=== PATIENT | male | born 1985 | race Two or more races ===

== ENCOUNTER 2023-10-07 22:26 | Inpatient (IN) | payer MEDICAID, OTHER ==
[~2023-10-07] VITALS: Ht 185.4 cm; Wt 70.0 kg
[2023-10-07] MEDS ORDERED: LACTATED RINGER'S 1,000 ML IV ONE (23:00)
[2023-10-07] MEDS ORDERED: LORazepam 2MG/ML-1ML VIAL IV ONE (23:00)
[2023-10-07 23:03] LABS: Basophils # (auto) 0.1 10 ^3/uL (0-0.2); Basophils % (auto) 0.9 % (0.0-2.0); Eosinophils # (auto) 0 10 ^3/uL (0-0.8); Hematocrit 28.5 % (41.0-53.0); Hemoglobin 9.2 g/dL (13.5-17.5); Lymphocytes # (auto) 1.1 10 ^3/uL (0.4-5.4); Lymphocytes % (auto) 10.1 % (10.0-50.0); Mean Corpuscular Hemoglobin 34.5 pg (28.0-32.0); Mean Corpuscular Hgb Conc. 32.4 g/dL (32.0-36.0); Mean Corpuscular Volume 106.6 fL (80.0-100.0); Nucleated Red Blood Cells % 0.1 %; Red Blood Cells 2.68 10^6/uL (4.5-5.90); Red Cell Distribution Width 14.3 % (11.8-14.3); White Blood Cell 11.3 10^3/uL (4.4-10.8)
[2023-10-07 23:20] LABS: INR 2.2 (0.9-1.15); Prothrombin Time 21.9 sec (9.3-11.8)
[2023-10-07 23:31] LABS: Alanine Aminotransferase 53 U/L (7-40); Alkaline Phosphatase 242 U/L (46-116); Anion Gap 18 (5-15); Aspartate Aminotransferase 264 U/L (13-40); Bilirubin, Total 12.2 mg/dL (0.2-1.0); Blood Urea Nitrogen 9 mg/dL (9-23); Calcium 8.6 mg/dL (8.5-10.1); Carbon Dioxide 17 mmol/L (20-30); Chloride 98 mmol/L (98-107); Glucose 103 mg/dL (74-106); Potassium 3.6 mmol/L (3.5-5.1); Sodium 133 mmol/L (136-145); Total Protein 8.3 g/dL (5.7-8.2)
[2023-10-07 23:56] LABS: BUN/Creatinine Ratio 8.6 (10.0-20.0)
[2023-10-08 00:19] LABS: Platelet Estimate Decreased
[2023-10-08 00:20] LABS: Large Platelets FEW; Macrocytosis Moderate; Target Cell FEW
[2023-10-08 00:25] VITALS: PULSE 118; RESP 20; O2SAT 98
[2023-10-08] MEDS ORDERED: FOLIC ACID 1 MG in D5W 5% 50 ML INJ ONE (01:30)
[2023-10-08] MEDS ORDERED: LORazepam 2MG/ML-1ML VIAL IV ONE (01:30)
[2023-10-08] MEDS ORDERED: THIAMINE 100mg/ml INJ (200mg/2ml VIAL) IV ONE (01:30)
[2023-10-08 01:57] LABS: INR 2.28 (0.9-1.15); Prothrombin Time 22.7 sec (9.3-11.8)
[2023-10-08 02:29] LABS: Salicylate < 3.0 mg/dL (2.8-20.0)
[2023-10-08 02:37] LABS: Lactic Acid w/Reflex 3.8 mmol/L (0.4-2.0)
[2023-10-08 02:51] LABS: Lipase 52 U/L (12-53)
[2023-10-08 05:04] LABS: Urine Bacteria NONE SEEN /hpf (None Seen); Urine Blood Negative /uL (Negative); Urine Clarity Clear (Clear); Urine Color Yellow (Yellow); Urine Protein, UAD Negative (Negative); Urine Specific Gravity 1.008 (1.001-1.035); Urine WBC 3 /hpf (0 - 3)
[2023-10-08 06:46] LABS: Amphetamine Screen, Urine Neg (NEGATIVE); Barbiturate Scree,Urine Neg (NEGATIVE); Benzodiazephine Screen, Urine Neg (NEGATIVE); Cocaine Screen, Urine Neg (NEGATIVE); Opiate Scree,Urine Neg (NEGATIVE)
[2023-10-08 06:47] LABS: Cannabinoid Screen, Urine Neg (NEGATIVE); Phencyclidine Screen, Urine Neg (NEGATIVE)
[2023-10-08] MEDS ORDERED: chlordiazePOXIDE HCL 25 MG CAP PO ONE (08:45)
[2023-10-08] MEDS ORDERED: PANTOPRAZOLE 40 MG/10 ML VIAL INJ IV ONE (08:45)
[2023-10-08] MEDS ORDERED: MORPHINE SULFATE INJ 2 MG/ml SYRG IV PRN (08:45)
[2023-10-08] MEDS ORDERED: NITROGLYCERIN 0.4 MG SL TAB SL PRN (08:45)
[2023-10-08] MEDS ORDERED: SODIUM CHLORIDE 0.9% 2,000 ML IV ONE (08:45)
[2023-10-08] MEDS ORDERED: SODIUM CHLORIDE 0.9% 1,000 ML IV ONE (08:45)
[2023-10-08] MEDS ORDERED: ONDANSETRON HCL 4 MG/2 ML VIAL IV ONE (08:45)
[2023-10-08] MEDS: LORazepam 2MG/ML-1ML VIAL IV PRN ×4 (09:44→23:53)
[2023-10-08] MEDS: PANTOPRAZOLE 40 MG/10 ML VIAL INJ IV SCH (10:00)
[2023-10-08] MEDS ORDERED: ENOXAPARIN SOD 40 MG/0.4 ML SYRINGE SC SCH (10:00)
[2023-10-08] MEDS: FOLIC ACID 1 MG, MULTIPLE VITAMIN 10 ML, MAGNESIUM SULF SDV 50% 8 MEQ, THIAMINE INJ 100... INJ SCH ×5 (12:00)
[2023-10-08] MEDS ORDERED: FOLIC ACID 1 MG, MULTIPLE VITAMIN 10 ML, MAGNESIUM SULF SDV 50% 8 MEQ, THIAMINE INJ 100... INJ SCH ×5 (12:00)
[2023-10-08 20:10] VITALS: PULSE 97; RESP 19; O2SAT 100
[2023-10-09] MEDS: LORazepam 2MG/ML-1ML VIAL IV PRN ×6 (03:48→22:05)
[2023-10-09 06:55] LABS: Alanine Aminotransferase 40 U/L (7-40); Albumin 2.2 g/dL (3.2-4.8); Alkaline Phosphatase 133 U/L (46-116); Anion Gap 7 (5-15); Aspartate Aminotransferase 213 U/L (13-40); BUN/Creatinine Ratio 7.8 (10.0-20.0); Blood Urea Nitrogen 6 mg/dL (9-23); Calcium 7.2 mg/dL (8.7-10.4); Carbon Dioxide 23 mmol/L (20-30); Chloride 105 mmol/L (98-107); Glucose 94 mg/dL (74-106); Potassium 2.6 mmol/L (3.5-5.1); Sodium 135 mmol/L (136-145)
[2023-10-09 06:56] LABS: Bilirubin, Total 7.9 mg/dL (0.2-1.0); Total Protein 6.5 g/dL (5.7-8.2)
[2023-10-09 07:00] LABS: Basophils # (auto) 0.1 10 ^3/uL (0-0.2); Eosinophils # (auto) 0 10 ^3/uL (0-0.8); Monocytes # (auto) 0.5 10 ^3/uL (0-1.3); Nucleated Red Blood Cells % 0.2 %; Red Blood Cells 2.22 10^6/uL (4.5-5.90)
[2023-10-09 07:42] LABS: Eosinophils % (auto) 0.6 % (0.0-7.0); Hematocrit 23.5 % (41.0-53.0); Hemoglobin 8.2 g/dL (13.5-17.5); Lymphocytes % (auto) 33.2 % (10.0-50.0); Mean Corpuscular Hemoglobin 36.8 pg (28.0-32.0); Mean Corpuscular Hgb Conc. 34.8 g/dL (32.0-36.0); Mean Corpuscular Volume 105.9 fL (80.0-100.0); Monocytes % (auto) 8.6 % (0.0-12.0); Neutrophils # (auto) 3.3 10 ^3/uL (1.6-8.6); Neutrophils % (auto) 56.6 % (37.0-80.0); Red Cell Distribution Width 14.5 % (11.8-14.3); White Blood Cell 5.9 10^3/uL (4.4-10.8)
[2023-10-09 08:00] VITALS: PULSE 97; RESP 19; O2SAT 100
[2023-10-09] MEDS: methylPREDNISolone SOD SUCC 40 MG/ML VL IV SCH (11:44)
[2023-10-09] MEDS: PANTOPRAZOLE 40 MG/10 ML VIAL INJ IV SCH (11:45)
[2023-10-09] MEDS ORDERED: chlordiazePOXIDE HCL 25 MG CAP PO PRN (13:00)
[2023-10-09] MEDS ORDERED: POTASSIUM EFFERVESENT TAB 25 MEQ PO ONE (13:00)
[2023-10-09] MEDS: FOLIC ACID 1 MG, MULTIPLE VITAMIN 10 ML, MAGNESIUM SULF SDV 50% 8 MEQ, THIAMINE INJ 100... INJ SCH ×5 (13:58)
[2023-10-09] MEDS: SOD CHL 0.9%/ KCL 40MEQ 1,000 ML IV SCH ×2 (14:11→22:59)
[2023-10-09] MEDS: chlordiazePOXIDE HCL 25 MG CAP PO SCH (18:58)
[2023-10-09 20:00] VITALS: PULSE 98
[2023-10-09 21:22] VITALS: BP_SYST 105; PULSE 110; RESP 20; TEMP 98; O2SAT 98
[2023-10-10] VITALS (7 sets, daily range): BP systolic 99–115; BP diastolic 54–77; PULSE 91–107; RESP 16–19; TEMP 98.2–99; O2SAT 96–98
[2023-10-10] MEDS: chlordiazePOXIDE HCL 25 MG CAP PO SCH ×4 (00:19→17:38)
[2023-10-10 07:14] LABS: Calcium 7.4 mg/dL (8.7-10.4); Chloride 109 mmol/L (98-107); Potassium 3.7 mmol/L (3.5-5.1); Sodium 139 mmol/L (136-145)
[2023-10-10 07:15] LABS: Anion Gap 6 (5-15); Carbon Dioxide 24 mmol/L (20-30)
[2023-10-10 07:20] LABS: BUN/Creatinine Ratio 7.8 (10.0-20.0); Blood Urea Nitrogen 6 mg/dL (9-23); Glucose 98 mg/dL (74-106)
[2023-10-10 07:21] LABS: Magnesium 1.8 mg/dL (1.6-2.6)
[2023-10-10 08:47] LABS: Hepatitis B Surface Antibody Negative (Negative)
[2023-10-10] MEDS: SOD CHL 0.9%/ KCL 40MEQ 1,000 ML IV SCH (09:00)
[2023-10-10 09:05] LABS: Hepatitis B Surface Antigen Negative (Negative)
[2023-10-10 09:21] LABS: Hepatitis C Antibody Negative (Negative)
[2023-10-10 09:26] LABS: Hepatitis A Ab IgM Negative; Hepatitis B Core IgM Negative
[2023-10-10 09:27] LABS: Hepatitis C Antibody Negative (Negative)
[2023-10-10] MEDS: methylPREDNISolone SOD SUCC 40 MG/ML VL IV SCH (10:24)
[2023-10-10] MEDS: PANTOPRAZOLE 40 MG/10 ML VIAL INJ IV SCH (10:24)
[2023-10-10] MEDS: FOLIC ACID 1 MG, MULTIPLE VITAMIN 10 ML, MAGNESIUM SULF SDV 50% 8 MEQ, THIAMINE INJ 100... INJ SCH ×5 (13:08)
[2023-10-11] VITALS (7 sets, daily range): BP systolic 99–111; BP diastolic 55–69; PULSE 73–110; RESP 17–19; TEMP 97.8–99.3; O2SAT 95–98
[2023-10-11] MEDS: chlordiazePOXIDE HCL 25 MG CAP PO SCH ×4 (00:18→17:42)
[2023-10-11] MEDS: methylPREDNISolone SOD SUCC 40 MG/ML VL IV SCH (09:39)
[2023-10-11] MEDS: THIAMINE HCL 100 MG TAB PO SCH (09:39)
[2023-10-11] MEDS: PANTOPRAZOLE 40 MG/10 ML VIAL INJ IV SCH (09:39)
[2023-10-11] MEDS: FOLIC ACID 1 MG TAB PO SCH (09:39)
[2023-10-11] MEDS: MULTIPLE VITAMIN TAB PO SCH (09:39)
[2023-10-12] VITALS (7 sets, daily range): BP systolic 102–118; BP diastolic 52–69; PULSE 78–105; RESP 17–98; TEMP 97.8–98.3; O2SAT 98–100
[2023-10-12] MEDS: chlordiazePOXIDE HCL 25 MG CAP PO SCH (00:06)
[2023-10-12] MEDS: chlordiazePOXIDE HCL 5 MG CAP PO SCH ×3 (07:08→18:11)
[2023-10-12 07:52] LABS: Alanine Aminotransferase 42 U/L (7-40); Albumin 2.4 g/dL (3.2-4.8); Alkaline Phosphatase 103 U/L (46-116); Anion Gap 8 (5-15); Aspartate Aminotransferase 119 U/L (13-40); BUN/Creatinine Ratio 11.8 (10.0-20.0); Blood Urea Nitrogen 8 mg/dL (9-23); Calcium 8.2 mg/dL (8.5-10.1); Carbon Dioxide 23 mmol/L (20-30); Chloride 104 mmol/L (98-107); Glucose 90 mg/dL (74-106); Potassium 3.6 mmol/L (3.5-5.1); Sodium 135 mmol/L (136-145); Total Protein 6.8 g/dL (5.7-8.2)
[2023-10-12] MEDS: MULTIPLE VITAMIN TAB PO SCH (09:29)
[2023-10-12] MEDS: FOLIC ACID 1 MG TAB PO SCH (09:29)
[2023-10-12] MEDS: THIAMINE HCL 100 MG TAB PO SCH (09:29)
[2023-10-12] MEDS: PANTOPRAZOLE 40 MG/10 ML VIAL INJ IV SCH (09:30)
[2023-10-12] MEDS: methylPREDNISolone SOD SUCC 40 MG/ML VL IV SCH (09:30)
[2023-10-13] VITALS (7 sets, daily range): BP systolic 104–114; BP diastolic 56–67; PULSE 81–98; RESP 15–18; TEMP 97.4–99.4; O2SAT 97–100
[2023-10-13] MEDS: chlordiazePOXIDE HCL 5 MG CAP PO SCH ×4 (00:32→18:52)
[2023-10-13] MEDS: FOLIC ACID 1 MG TAB PO SCH (10:16)
[2023-10-13] MEDS: methylPREDNISolone SOD SUCC 40 MG/ML VL IV SCH (10:16)
[2023-10-13] MEDS: MULTIPLE VITAMIN TAB PO SCH (10:16)
[2023-10-13] MEDS: PANTOPRAZOLE 40 MG/10 ML VIAL INJ IV SCH (10:16)
[2023-10-13] MEDS: THIAMINE HCL 100 MG TAB PO SCH (10:16)
[2023-10-13 17:42] LABS: Chloride 103 mmol/L (98-107); Potassium 3.9 mmol/L (3.5-5.1); Sodium 135 mmol/L (136-145)
[2023-10-13 17:43] LABS: Anion Gap 7 (5-15); Carbon Dioxide 25 mmol/L (20-30)
[2023-10-13 17:44] LABS: Calcium 8.3 mg/dL (8.5-10.1)
[2023-10-13 17:49] LABS: BUN/Creatinine Ratio 15.4 (10.0-20.0); Blood Urea Nitrogen 10 mg/dL (9-23); Glucose 130 mg/dL (74-106)
[2023-10-13] MEDS ORDERED: phytonadione 10 MG in SODIUM CHL 0.9% 50 ML IV ONE (21:00)
[2023-10-13] MEDS ORDERED: phytonadione 1 ML ONE (21:47)
[2023-10-14] MEDS: chlordiazePOXIDE HCL 5 MG CAP PO SCH ×2 (00:07→06:08)
[2023-10-14 05:00] VITALS: BP 112/58; PULSE 74; RESP 17; TEMP 97.9; O2SAT 100
[2023-10-14 06:26] LABS: Basophils # (auto) 0 10 ^3/uL (0-0.2); Eosinophils # (auto) 0 10 ^3/uL (0-0.8); Hemoglobin 10.8 g/dL (13.5-17.5); Mean Corpuscular Hemoglobin 36.1 pg (28.0-32.0); Monocytes # (auto) 0.7 10 ^3/uL (0-1.3)
[2023-10-14 06:29] LABS: Basophils % (auto) 0.5 % (0.0-2.0); Eosinophils % (auto) 0.5 % (0.0-7.0); Hematocrit 32.9 % (41.0-53.0); Lymphocytes # (auto) 1.7 10 ^3/uL (0.4-5.4); Lymphocytes % (auto) 18.9 % (10.0-50.0); Mean Corpuscular Hgb Conc. 32.7 g/dL (32.0-36.0); Mean Corpuscular Volume 110.3 fL (80.0-100.0); Monocytes % (auto) 7.7 % (0.0-12.0); Neutrophils # (auto) 6.4 10 ^3/uL (1.6-8.6); Neutrophils % (auto) 72.4 % (37.0-80.0); Red Blood Cells 2.99 10^6/uL (4.5-5.90); Red Cell Distribution Width 15.3 % (11.8-14.3); White Blood Cell 8.8 10^3/uL (4.4-10.8)
[2023-10-14 08:00] VITALS: BP 112/62; PULSE 79; RESP 17; TEMP 98.5; O2SAT 98
[2023-10-14 09:00] VITALS: BP 112/62; PULSE 79; RESP 17; TEMP 98.5; O2SAT 100
[2023-10-14] MEDS: FOLIC ACID 1 MG TAB PO SCH (11:39)
[2023-10-14] MEDS: MULTIPLE VITAMIN TAB PO SCH (11:39)
[2023-10-14] MEDS: THIAMINE HCL 100 MG TAB PO SCH (11:39)
[2023-10-14] MEDS: PANTOPRAZOLE 40 MG/10 ML VIAL INJ IV SCH (11:39)
[2023-10-14] MEDS: predniSONE 20 MG TAB PO SCH (11:39)
[2023-10-14] MEDS ORDERED: chlordiazePOXIDE HCL 5 MG CAP PO PRN (12:45)
[2023-10-14 17:00] VITALS: BP 103/38; PULSE 87; RESP 18; O2SAT 98
[2023-10-14 20:00] VITALS: RESP 18; O2SAT 98
[2023-10-15 00:10] VITALS: BP 103/52; PULSE 78; RESP 17; TEMP 97.5; O2SAT 99
[2023-10-15 05:02] VITALS: BP 97/59; PULSE 71; RESP 18; TEMP 98.6; O2SAT 100
[2023-10-15] MEDS: FOLIC ACID 1 MG TAB PO SCH (07:55)
[2023-10-15] MEDS: THIAMINE HCL 100 MG TAB PO SCH (07:55)
[2023-10-15] MEDS: predniSONE 20 MG TAB PO SCH (07:55)
[2023-10-15] MEDS: MULTIPLE VITAMIN TAB PO SCH (07:55)
[2023-10-15 08:00] VITALS: BP 130/85; PULSE 62; RESP 18; TEMP 97.6; O2SAT 95
[2023-10-15 09:00] VITALS: BP 120/79; PULSE 61; RESP 16; TEMP 97.5; O2SAT 94
[2023-10-15 10:47] VITALS: BP 130/85; PULSE 62; RESP 18; TEMP 97.6; O2SAT 95
[2023-10-15 13:00] VITALS: BP 119/67; PULSE 75; RESP 20; TEMP 98.3; O2SAT 98
== END 2023-10-15 13:10 | disposition home or self-care (01) ==
LOC: ER 22:26 → TELE 10-08 08:42 → TELE-CENTR 10-09 17:30 → CENTRAL 10-10 15:16
PROVIDERS: ADMIT Nurse Practitioner Family; ATTEND Nurse Practitioner Acute Care
DX: K74.60 Unspecified cirrhosis of liver (principal); F10.231 Alcohol dependence with withdrawal delirium; E87.20 Acidosis, unspecified; R65.10 Systemic inflammatory response syndrome (SIRS) of non-infectious origin without acute organ dysfunction; E87.1 Hypo-osmolality and hyponatremia; E86.0 Dehydration; R56.9 Unspecified convulsions; D72.829 Elevated white blood cell count, unspecified; D53.9 Nutritional anemia, unspecified; E87.6 Hypokalemia; F10.232 Alcohol dependence with withdrawal with perceptual disturbance; F17.210 Nicotine dependence, cigarettes, uncomplicated; F41.9 Anxiety disorder, unspecified
CPT/HCPCS: 36415; 70450; 71046; 76705; 80048; 80053; 80074; 80307; 80320; 80329; 81001; 82140; 82247; 83605; 83690; 83735; 85025; 85610; 86706; 86803; 93005; 96361; 96365; 96375; 96376; 97110; 97116; 97163; 97530; 99291; C9113; G0378; J2405; J3430; J7060